=== PATIENT | female | born 1940 | race Two or more races ===

== ENCOUNTER 2020-01-19 15:51 | Outpatient (CLI) | payer MEDICARE ==
[2020-01-19] MEDS ORDERED: SERT100T PO (15:58)
[2020-01-19] MEDS ORDERED: GABA600T7 PO (15:58)
[2020-01-19] MEDS ORDERED: AMLO2.5T5 PO (15:58)
[2020-01-19] MEDS ORDERED: SENN8.6T98 PO (15:58)
[2020-01-19] MEDS ORDERED: Anxiety med (16:38)
[2020-01-19] MEDS ORDERED: parkinson med (16:38)
[2020-01-19 17:26] LABS: ALBUMIN 3.5 g/dL (3.4-5.0); ANION GAP 6 mmol/L (5-15); CALCIUM 8.6 mg/dL (8.5-10.1); CHLORIDE 109 mmol/L (98-107)
[2020-01-19 17:27] LABS: MEAN CORPUSCULAR HEMOGLOBIN 27.5 pg (27.0-34.8); MEAN CORPUSCULAR HGB CONC 32.6 g/dL (32.4-35.8); MEAN CORPUSCULAR VOLUME 84.1 fL (80-100); MEAN PLATELET VOLUME 8.5 fL (7.4-10.4); PLATELET COUNT 275 x10^3/uL (130-400); RED BLOOD COUNT 4.17 x10^6/uL (3.82-5.3); RED CELL DISTRIBUTION WIDTH 31.1 % (9.6-15.2)
[2020-01-19 17:29] LABS: BASOPHILS # (AUTO) 0.06 x10^3/uL (0-0.1); BASOPHILS % (AUTO) 1 % (0-1); EOSINOPHILS # (AUTO) 0.47 x10^3/uL (0-0.4); EOSINOPHILS % (AUTO) 7 % (1-7); LYMPHOCYTES # (AUTO) 1.76 x10^3/uL (1-3.4); LYMPHOCYTES % (AUTO) 27 % (22-44); MD MORPH REVIEW ONLY; MONOCYTES # (AUTO) 0.46 x10^3/uL (0.2-0.8); MONOCYTES % (AUTO) 7 % (2-9); NEUTROPHILS # (AUTO) 3.72 x10^3/uL (1.8-6.8); NEUTROPHILS % (AUTO) 58 % (42-75)
[2020-01-19 17:30] LABS: ALANINE AMINOTRANSFERASE 8 U/L (12-78); ALKALINE PHOSPHATASE 175 U/L (45-117); BILIRUBIN,TOTAL 0.3 mg/dL (0.2-1.0); CREATININE 0.99 mg/dL (0.55-1.02); TOTAL PROTEIN 7.5 g/dL (6.4-8.2)
[2020-01-19 17:31] LABS: ANISOCYTOSIS 2+; OVALOCYTES 1+; TEAR DROPS 1+
[2020-01-19 17:32] LABS: <PLATELET ESTIMATE> ADEQUATE; <PLT MORPHOLOGY> NORMAL PLT MORPH; HYPOCHROMIA 1+
== END 2020-01-19 23:59 | disposition home or self-care (01) ==
LOC: STAR 15:51
PROVIDERS: ATTEND Colon & Rectal Surgery
DX: Z01.818 Encounter for other preprocedural examination (principal)
CPT/HCPCS: 36415; 80053; 85025; 93005

== ENCOUNTER 2020-01-25 06:10 | Inpatient (IN) | payer MEDICARE, OTHER ==
[~2020-01-25] VITALS: Ht 154.9 cm; Wt 64.8 kg
[~2020-01-25 06:10] MED LIST: AMLO2.5T5 PO; Anxiety med; GABA600T7 PO; SENN8.6T98 PO; SERT100T PO; parkinson med
[2020-01-25] MEDS ORDERED: MIDAZOLAM 1 MG/ML, 2ML ONE (06:17)
[2020-01-25] MEDS ORDERED: FENTANYL PF 250 MCG/5ML ONE (06:17)
[2020-01-25] MEDS ORDERED: HEPARIN 1,000 UNITS/ML, 10ML ONE (06:29)
[2020-01-25] MEDS ORDERED: BUPIVACAINE/PF-EPI 0.5% 1:200K ONE (06:29)
[2020-01-25] MEDS ORDERED: LACTATED RINGERS 1,000 ML IV SCH (06:39)
[2020-01-25] MEDS ORDERED: GABAPENTIN 300 MG CAPSULE PO ONE (07:00)
[2020-01-25] MEDS ORDERED: FAMOTIDINE 20 MG TABLET PO ONE (07:00)
[2020-01-25] MEDS ORDERED: ACETAMINOPHEN 500 MG TABLET PO ONE (07:00)
[2020-01-25] MEDS ORDERED: PHENYLEPHRINE 10 MG/ML ONE (07:42)
[2020-01-25] MEDS ORDERED: DEXAMETHASONE 4 MG/ML, 1ML ONE (07:53)
[2020-01-25] MEDS ORDERED: HYDROmorphone 2 MG/ML, 1ML IVPush PRN (09:00)
[2020-01-25] MEDS ORDERED: MORPHINE SULFATE 4 MG/ML, 1ML IVPush PRN ×3 (09:00→19:00)
[2020-01-25] MEDS ORDERED: LABETALOL 5MG/ML, 20ML IV PRN (09:00)
[2020-01-25] MEDS ORDERED: hydrALAzine 20 MG/ML, 1ML IV PRN (09:00)
[2020-01-25] MEDS ORDERED: OXYcodone 5 MG/5 ML ORAL.SOL UDC PO PRN (09:00)
[2020-01-25] MEDS ORDERED: PROMETHAZINE 25 MG/ML, 1ML IV PRN (09:00)
[2020-01-25] MEDS ORDERED: ONDANSETRON 2MG/ML, 2ML IV PRN ×2 (09:00→12:30)
[2020-01-25] MEDS ORDERED: PROPOFOL 10 MG/ML, 20ML ONE (09:33)
[2020-01-25] MEDS ORDERED: ONDANSETRON 2MG/ML, 2ML ONE (09:33)
[2020-01-25] MEDS ORDERED: ROCURONIUM 10MG/ML,5ML ONE (09:33)
[2020-01-25] MEDS ORDERED: CEFOTETAN PMX 2GM/50ML 50 ML ONE (09:33)
[2020-01-25] MEDS ORDERED: SUGAMMADEX 200 MG/2 ML IVPush ONE (09:36)
[2020-01-25] MEDS ORDERED: KETOROLAC 30 MG/1 ML IVPush STA (10:16)
[2020-01-25] MEDS ORDERED: KETOROLAC 30 MG/1 ML ONE (10:20)
[2020-01-25 12:17] VITALS: BP 115/71
[2020-01-25] MEDS ORDERED: TRAZODONE 50MG TABLET PO PRN (12:30)
[2020-01-25] MEDS ORDERED: CALCIUM CARBONATE 500 MG TAB.CHEW PO PRN (12:30)
[2020-01-25] MEDS ORDERED: SCOPOLAMINE 1MG PATCH TD PRN (12:30)
[2020-01-25] MEDS ORDERED: LORazepam 2 MG/ML, 1ML IVPush PRN (12:30)
[2020-01-25] MEDS ORDERED: HALOPERIDOL 5 MG/ML IVPush PRN (12:30)
[2020-01-25] MEDS ORDERED: OXYcodone IR 5MG TABLET PO PRN ×3 (12:30→19:00)
[2020-01-25] MEDS ORDERED: LORazepam 1MG TABLET PO PRN (12:30)
[2020-01-25] MEDS ORDERED: DIPHENHYDRAMINE 25 MG CAPSULE PO PRN (12:30)
[2020-01-25] MEDS ORDERED: DEXAMETHASONE 4 MG/ML, 1ML IVPush PRN (12:30)
[2020-01-25] MEDS ORDERED: DIPHENHYDRAMINE 50 MG/ML, 1ML IVPush PRN (12:30)
[2020-01-25] MEDS: KETOROLAC 30 MG/1 ML IVPush SCH ×2 (14:47→20:57)
[2020-01-25] MEDS: CARBIDOPA/LEVODOPA 25 MG/100 MG TABLET PO SCH ×3 (14:47→22:18)
[2020-01-25] MEDS: ACETAMINOPHEN 500 MG TABLET PO SCH ×2 (14:47→20:58)
[2020-01-25] MEDS: LACTATED RINGERS 1,000 ML IV SCH (14:54)
[2020-01-25] MEDS ORDERED: CARBIDOPA/LEVODOPA 25 MG/100 MG TABLET PO SCH (16:00)
[2020-01-25 18:12] VITALS: BP 94/61
[2020-01-25] MEDS ORDERED: CARB1TAB47 PO (23:30)
[2020-01-25] MEDS ORDERED: SERT100T32 PO (23:30)
[2020-01-26 00:05] VITALS: BP 131/61
[2020-01-26] MEDS: ACETAMINOPHEN 500 MG TABLET PO SCH ×4 (03:00→21:58)
[2020-01-26] MEDS: KETOROLAC 30 MG/1 ML IVPush SCH ×4 (03:01→21:58)
[2020-01-26 03:28] LABS: ANION GAP 5 mmol/L (5-15); CALCIUM 8.8 mg/dL (8.5-10.1); CHLORIDE 110 mmol/L (98-107); CREATININE 1.49 mg/dL (0.55-1.02)
[2020-01-26 03:33] LABS: MEAN CORPUSCULAR HEMOGLOBIN 27.9 pg (27.0-34.8); MEAN CORPUSCULAR HGB CONC 33.1 g/dL (32.4-35.8); MEAN CORPUSCULAR VOLUME 84.5 fL (80-100); PLATELET COUNT 232 x10^3/uL (130-400); RED BLOOD COUNT 3.84 x10^6/uL (3.82-5.3); RED CELL DISTRIBUTION WIDTH 30.3 % (9.6-15.2)
[2020-01-26 03:54] LABS: BASOPHILS # (AUTO) 0.04 x10^3/uL (0-0.1); BASOPHILS % (AUTO) 1 % (0-1); EOSINOPHILS # (AUTO) 0.13 x10^3/uL (0-0.4); EOSINOPHILS % (AUTO) 1 % (1-7); LYMPHOCYTES # (AUTO) 1.58 x10^3/uL (1-3.4); LYMPHOCYTES % (AUTO) 18 % (22-44); MD SCAN; MONOCYTES # (AUTO) 0.62 x10^3/uL (0.2-0.8); MONOCYTES % (AUTO) 7 % (2-9); NEUTROPHILS # (AUTO) 6.44 x10^3/uL (1.8-6.8); NEUTROPHILS % (AUTO) 73 % (42-75)
[2020-01-26 04:43] VITALS: BP 154/78
[2020-01-26] MEDS: CARBIDOPA/LEVODOPA 25 MG/100 MG TABLET PO SCH ×4 (05:46→21:58)
[2020-01-26] MEDS ORDERED: ENOXAPARIN 40 MG/0.4 ML SQ SCH (06:00)
[2020-01-26] MEDS: LACTATED RINGERS 1,000 ML IV SCH (09:00)
[2020-01-26 09:17] VITALS: BP 118/66
[2020-01-26] MEDS: NS + 20MEQ KCL 1,000 ML IV SCH ×3 (09:30→22:50)
[2020-01-26] MEDS: SERTRALINE 100MG TABLET PO SCH (09:44)
[2020-01-26 13:07] VITALS: BP 147/75
[2020-01-26 19:14] VITALS: BP 165/85
[2020-01-27] MEDS: ACETAMINOPHEN 500 MG TABLET PO SCH ×2 (03:05→09:30)
[2020-01-27] MEDS: KETOROLAC 30 MG/1 ML IVPush SCH ×2 (03:05→09:30)
[2020-01-27 03:29] LABS: ANION GAP 6 mmol/L (5-15); CALCIUM 8.3 mg/dL (8.5-10.1); CHLORIDE 112 mmol/L (98-107); CREATININE 1.01 mg/dL (0.55-1.02)
[2020-01-27 03:39] LABS: MEAN CORPUSCULAR HEMOGLOBIN 28.3 pg (27.0-34.8); MEAN CORPUSCULAR HGB CONC 33.1 g/dL (32.4-35.8); MEAN CORPUSCULAR VOLUME 85.7 fL (80-100); MEAN PLATELET VOLUME 8.4 fL (7.4-10.4); PLATELET COUNT 271 x10^3/uL (130-400); RED BLOOD COUNT 3.76 x10^6/uL (3.82-5.3); RED CELL DISTRIBUTION WIDTH 30.9 % (9.6-15.2)
[2020-01-27 03:44] VITALS: BP 147/77
[2020-01-27] MEDS: LACTATED RINGERS 1,000 ML IV SCH (04:25)
[2020-01-27 05:11] LABS: BASOPHILS # (AUTO) 0.02 x10^3/uL (0-0.1); BASOPHILS % (AUTO) 0 % (0-1); EOSINOPHILS # (AUTO) 0.28 x10^3/uL (0-0.4); EOSINOPHILS % (AUTO) 4 % (1-7); LYMPHOCYTES # (AUTO) 1.47 x10^3/uL (1-3.4); LYMPHOCYTES % (AUTO) 20 % (22-44); MD SCAN; MONOCYTES % (AUTO) 5 % (2-9); NEUTROPHILS # (AUTO) 5.13 x10^3/uL (1.8-6.8); NEUTROPHILS % (AUTO) 70 % (42-75)
[2020-01-27] MEDS ORDERED: ENOXAPARIN 30 MG/0.3 ML SQ SCH (06:00)
[2020-01-27] MEDS: CARBIDOPA/LEVODOPA 25 MG/100 MG TABLET PO SCH (06:26)
[2020-01-27 06:56] VITALS: BP 158/80
[2020-01-27] MEDS: SERTRALINE 100MG TABLET PO SCH (09:30)
== END 2020-01-27 10:00 | disposition home or self-care (01) | DRG 329 ==
LOC: ORIP 06:10 → 4NE 12:15
PROVIDERS: ADMIT Colon & Rectal Surgery; ATTEND Colon & Rectal Surgery
PROC: 8E0W4CZ Robotic Assisted Procedure of Trunk Region, Percutaneous Endoscopic Approach (ICD-10-PCS; 2020-01-25)
PROC: 0DTF4ZZ Resection of Right Large Intestine, Percutaneous Endoscopic Approach (ICD-10-PCS; principal; 2020-01-25 07:30)
DX: C18.2 Malignant neoplasm of ascending colon (principal); N17.0 Acute kidney failure with tubular necrosis; D63.8 Anemia in other chronic diseases classified elsewhere; E11.9 Type 2 diabetes mellitus without complications; E78.5 Hyperlipidemia, unspecified; F32.9 Major depressive disorder, single episode, unspecified; G20 Parkinson's disease; K21.9 Gastro-esophageal reflux disease without esophagitis; G47.00 Insomnia, unspecified; G47.30 Sleep apnea, unspecified; I10 Essential (primary) hypertension; I25.2 Old myocardial infarction; Z86.73 Personal history of transient ischemic attack (TIA), and cerebral infarction without residual deficits; Z88.8 Allergy status to other drugs, medicaments and biological substances
CPT/HCPCS: 36415; 80048; 82962; 83735; 85025; 88307; G0378; J1100; J1644; J1650; J1885; J2250; J2405; J2704; J3010; J3480; J2370; J3490; J7120